=== PATIENT | male | born 1970 | race Caucasian/White ===

== ENCOUNTER 2016-11-04 00:45 | Emergency (ER) | payer OTHER | END 2016-11-04 01:30 | disposition home or self-care (01) | LOC: ER 00:45 | DX: K04.7 Periapical abscess without sinus (principal); K08.109 Complete loss of teeth, unspecified cause, unspecified class; F17.220 Nicotine dependence, chewing tobacco, uncomplicated; Z90.49 Acquired absence of other specified parts of digestive tract ==